=== PATIENT | female | born 1960 | race Native Hawaiian/Other Pacific Islander ===

== ENCOUNTER 2018-08-03 21:10 | Emergency (ER) | payer BC ==
[2018-08-03 21:26] VITALS: O2SAT 97
[2018-08-03] MEDS ORDERED: BACIGUENT PACKET TP ONE (21:33)
[2018-08-03] MEDS ORDERED: Adacel Vial IM ONE ×2 (21:33→21:40)
--- NOTE | 2018-08-03 21:38 | ERPHSYRPT ---
- History of Present Illness Time Seen by Provider: 08/03/18 21:29 Source: patient Exam Limitations: no limitations Patient Subjective Stated Complaint: Right hand, 3rd digit injury Triage Nursing Assessment: Patient ambulated back to ED and transferred self to bed. Patient A+O X 3. Patient's skin pink, warm and dry. Patient complains of right hand, 3rd digit finger injury after accidently getting hit by a shovel around 1300.. Right hand, middle finger noted to have 0.3cm X 0.3cm laceration to middle of finger and swelling. Patient states constant throbbing pain 5/10 to finger. Physician History: 58-year-old white female arrives with complaint of pain throbbing right hand right third finger and a small laceration to the right third finger symptoms since 1:00 this afternoon. Patient states that she was working with her cleaning up the parking lot she was accidentally struck in the right third finger with a shovel. She states she received a small laceration overlying her right third PIP joint dorsally but she is having pain in her right hand especially her right third finger in her right dorsal hand she states that she has pain when fully extending the right finger she states she is having throbbing pain in the area. past medical history negative. Past surgical history tubal ligation. Social history occasional alcohol positive tobacco. Occurred: this afternoon (1:00 this afternoon) Method of Injury: other (right third finger struck with shovel accidentally) Quality: aching, throbbing Severity of Pain-Max: moderate Severity of Pain-Current: mild Extremities Pain Location: hand: right (right dorsal hand), 3rd finger: right Modifying Factors: Improves With: movement Associated Symptoms: No none Allergies/Adverse Reactions: No Known Drug Allergies Allergy (Verified 08/03/18 21:15) Hx Tetanus, Diphtheria Vaccination/Date Given: (unsure) Hx Influenza Vaccination/Date Given: Yes Hx Pneumococcal Vaccination/Date Given: No Immunizations Up to Date: Yes - Review of Systems Constitutional: No Fever, No Chills Eyes: No Symptoms Ears, Nose, & Throat: No Symptoms Respiratory: No Cough, No Dyspnea Cardiac: No Chest Pain, No Edema, No Syncope Abdominal/Gastrointestinal: No Abdominal Pain, No Nausea, No Vomiting, No Diarrhea Genitourinary Symptoms: No Dysuria Musculoskeletal: Other (pain right third finger right dorsal hand decreased range of motion right hand secondary to pain) Skin: Other (small laceration right dorsal third finger overlying PIP joint, approximately 1 cm fairly superficial) Neurological: No Dizziness, No Focal Weakness, No Sensory Changes Psychological: No Symptoms Endocrine: No Symptoms All Other Systems: Reviewed and Negative - Past Medical History Pertinent Past Medical History: No Neurological History: No Pertinent History ENT History: No Pertinent History Cardiac History: No Pertinent History Respiratory History: No Pertinent History Endocrine Medical History: No Pertinent History Musculoskeletal History: No Pertinent History GI Medical History: No Pertinent History History: No Pertinent History Psycho-Social History: No Pertinent History Female Reproductive Disorders: No Pertinent History - Past Surgical History Past Surgical History: Yes Neuro Surgical History: No Pertinent History Cardiac: No Pertinent History Respiratory: No Pertinent History Gastrointestinal: No Pertinent History Genitourinary: No Pertinent History Musculoskeletal: No Pertinent History Female Surgical History: Tubal Ligation - Social History Smoking Status: Current every day smoker How long have you smoked: years Exposure to second hand smoke: Yes Drug Use: none Patient Lives Alone: No - Female History Hx Last Menstrual Period: menopausal Hx Now: No - Nursing Vital Signs Nursing Vital Signs: Initial Vital Signs Temperature 98.5 F 08/03/18 21:16 Pulse Rate 84 08/03/18 21:16 Respiratory Rate 18 08/03/18 21:16 Blood Pressure 189/80 08/03/18 21:16 O2 Sat by Pulse Oximetry 97 08/03/18 21:16 Pain Scale Pain Intensity 5 - Physical Exam General Appearance: mild distress, alert Eyes, Ears, Nose, Throat Exam: moist mucous membranes Neck Exam: non-tender, supple Cardiovascular/Respiratory Exam: chest non-tender, normal breath sounds, regular rate/rhythm, no respiratory distress Abdominal Exam: non-tender, No guarding Back Exam: normal inspection, No vertebral tenderness Shoulder Exam: normal inspection, non-tender, no evidence of injury, normal ROM Elbow/Forearm Exam: normal inspection, non-tender, no evidence of injury, normal ROM Wrist Exam: normal inspection, non-tender, no evidence of injury, normal ROM Hand Exam: No normal inspection (right third finger with 1 cm laceration overlying PIP joint dorsally small amount of clear drainage right third finger decreased range of motion secondary to pain right hand decreased range of motion secondary to pain right third finger tender with palpation proximally had over PIP joint right hand tender with movement proximal to right third finger) Neuro/Tendon Exam: normal sensation, normal motor functions Mental Status Exam: alert, oriented x 3, cooperative Skin Exam: normal color, warm, dry SpO2 Interpretation: normal (97%) SpO2: 97 - Course Nursing assessment & vital signs reviewed: Yes - Radiology Exams Right Hand X-ray Interpretation: Interpreted by me (x ray right hand: no fractures, no subluxation) Ordered Tests: Active Orders 24 hr Category Date Time Status Wound Care STAT Care 08/03/18 21:33 Active HAND (MINIMUM 3 VIEWS) Stat Exams 08/03/18 21:33 Taken CULTURE,WOUND Stat Lab 08/03/18 21:59 Uncollected Medication Summary Discontinued Medications Generic Name Dose Route Start Last Admin Trade Name Freq PRN Reason Stop Dose Admin Bacitracin Zinc 0.9 gm 08/03/18 21:33 08/03/18 21:43 Baciguent Packet TP 08/03/18 21:34 0.9 gm STAT ONE Administration Bacitracin Zinc Confirm 08/03/18 21:40 Baciguent Packet Administered 08/03/18 21:41 Dose 1 gm .ROUTE .STK-MED ONE Diphtheria/Tetanus/Acell Pertussis 0.5 ml 08/03/18 21:33 08/03/18 21:42 Adacel Vial IM 08/03/18 21:34 0.5 ml .ONCE ONE Administration Diphtheria/Tetanus/Acell Pertussis Confirm 08/03/18 21:40 Adacel Vial Administered 08/03/18 21:41 Dose 0.5 ml IM .STK-MED ONE - Progress Progress: improved Progress Note: 08/03/18 21:39 58-year-old white female arrives with complaint of pain in right dorsal hand pain in her right third finger with palpation and movement after being accidentally struck in the hand with a shovel she has a small fairly superficial laceration overlying the right third PIP joint there is some clear drainage from the area. Patient states she is starting to have throbbing in her right hand and finger. I have offered patient pain medication she really does not want this. Will go ahead and obtain x-ray of the right hand will have nurses clean the laceration overlying her right third finger and apply bacitracin. Will update patient's DTaP. 05/05/19 22:01 Patient with a small laceration dorsal right third finger. She is having a fair amount of clear drainage from the area she states she is having pain proximal to the laceration both on her finger and hand. Will go ahead and obtain wound culture and give patient Augmentin 875 mg orally. Patient's x-ray no fracture no subluxation of the right hand. Patient was given DTaP. Patient does not want any pain medications. Laceration is cleansed and bacitracin applied by nurse. Will plan on patient being on Augmentin 500 mg orally 3 times a day for 7 days. She has been instructed if she is not markedly improved tomorrow she is to follow-up with her family doctor. - Departure Departure Disposition: Home Clinical Impression: cellulitis right third finger Contusion of right hand Qualifiers: Encounter type: initial encounter Qualified Code(s): S60.221A - Contusion of right hand, initial encounter Finger laceration Qualifiers: Encounter type: initial encounter Finger: middle finger Damage to nail status: unspecified Foreign body presence: without foreign body Laterality: right Qualified Code(s): S61.212A - Laceration without foreign body of right middle finger without damage to nail, initial encounter Condition: Fair Critical Care Time: No Referrals: LINDA LINDSAY [Primary Care Provider] - Additional Instructions: Return home. Ice to right hand 24-48 hours. Tylenol every 4 hours as needed for pain. Motrin every 6 hours as needed for pain. Augmentin 500 mg orally 3 times a day for 7 days. Follow-up with your family doctor if symptoms not markedly improved tomorrow or persist longer than 48 hours. Return for acute distress or for severe symptoms. Clean laceration and apply bacitracin several times a day. Prescriptions: Amox Tr/Potass Clav. 500 mg [Augmentin 500-125 Tablet] 500 mg PO TID #21 tablet
[2018-08-03] MEDS ORDERED: BACIGUENT PACKET ONE (21:40)
[2018-08-03] MEDS ORDERED: Augmentin 875-125 Tablet PO ONE (22:00)
[2018-08-03] MEDS ORDERED: Augmentin 875-125 Tablet ONE (22:06)
[2018-08-03 22:22] VITALS: BP 161/89; PULSE 71
--- NOTE | 2018-08-04 08:42 | XRAY ---
Indication: 3rd finger laceration. Comparison: None 3 views of the right hand demonstrates mild 1st metacarpal multangular degenerative changes. No other bony, articular, or soft tissue abnormalities.
== END 2018-08-03 22:22 | disposition home or self-care (01) ==
LOC: ED 21:10
DX: L03.011 Cellulitis of right finger (principal); S60.221A Contusion of right hand, initial encounter; S61.212A Laceration without foreign body of right middle finger without damage to nail, initial encounter; W22.8XXA Striking against or struck by other objects, initial encounter; M79.644 Pain in right finger(s)
CPT/HCPCS: 73130; 87070; 90471; 90715; 99284; A9270-GY